=== PATIENT | female | born 1980 | race Caucasian/White ===

== ENCOUNTER → 2019-10-22 10:47 | Outpatient (BNVA) | payer OTHER, SELFPAY | PROVIDERS: Family Provider Family Medicine; Referring Provider Family Medicine; Visit Provider Otolaryngology | DX: E04.9 Nontoxic goiter, unspecified (principal); K21.9 Gastro-esophageal reflux disease without esophagitis; R47.02 Dysphasia | CPT/HCPCS: 99203; 99214 ==

== ENCOUNTER 2019-10-27 10:57 | Outpatient (CLI) | payer OTHER, SELFPAY ==
--- NOTE | 2019-10-27 11:00 | US_ITS ---
WS: [id number] ULTRASOUND THYROID TECHNIQUE: Ultrasound of the thyroid. CLINICAL INFORMATION: Goiter COMPARISON: and FINDINGS: Thyroid: Right and left thyroid lobes are normal in size and echotexture. A few bilateral cystic and solid thyroid nodules not significantly changed since 2019. Right thyroid lobe: 5.9 cm x 1.0 cm x 1.2 cm 6 x 5 x 6 mm solid hypoechoic nodule. 6 x 5 x 6 mm echogenic nodule. Left thyroid lobe: 5.5 cm x 1.4 cm x 1.3 cm. 15 x 12 x 10 mm complex nodule. 15 x 11 x 11 mm solid nodule Isthmus: 0.2 mm. Cervical lymphadenopathy: None. US/US thyroid [id number] IMPRESSION: 1. A few bilateral cystic and solid thyroid nodules the largest in the left th yroid lobe measuring 15 mm. These are stable since 2019. 2. Recommend 12 month follow-up.
== END 2019-10-27 10:58 | disposition home or self-care (01) ==
LOC: RAD 11:01
PROVIDERS: Family Provider Family Medicine; PCP Family Medicine; Visit Provider Otolaryngology
DX: E04.9 Nontoxic goiter, unspecified (principal); E04.1 Nontoxic single thyroid nodule
CPT/HCPCS: 76536

== ENCOUNTER → 2019-11-12 11:26 | Outpatient (BNVA) | payer OTHER, SELFPAY | PROVIDERS: Family Provider Family Medicine; PCP Family Medicine; Visit Provider Otolaryngology | DX: E04.9 Nontoxic goiter, unspecified (principal); K21.9 Gastro-esophageal reflux disease without esophagitis; R47.02 Dysphasia | CPT/HCPCS: 99213; 99214 ==

== ENCOUNTER 2020-04-27 13:12 | Outpatient (CLI) | payer OTHER, SELFPAY ==
--- NOTE | 2020-04-27 13:29 | CT_ITS ---
WS: [id number] CT ABDOMEN AND PELVIS WITH CONTRAST HISTORY: INCARCERATED SU-UMBILICAL HERNIA VS ACUTE APPENDICITIS TECHNIQUE: Imaging performed of the abdomen and pelvis with IV contrast. Single phase imaging of the abdomen. Coronal and sagittal reformats are submitted. All CT scans at [facility] use at least one of these dose optimization techniques: automated exposure control; mA and/or kV adjustment per patient size (includes targeted exams where dose is matched to clinical indication); or iterativ e reconstruction. IV CONTRAST: Omnipaque 300; 95 mL IV. Oral contrast: No DLP: 1011.69 mGy.cm COMPARISON: None available. Lower thorax: Lung bases are clear. Heart is normal size. No hiatal hernia. Liver/biliary system: Very mild hepatic steatosis. No mass. No bile duct dilatation. Gallbladder: Normal. No gallstones or wall thickening. No pericholecystic fluid. Pancreas: Normal. Spleen: Normal. Adrenal glands: Normal. Right kidney: Normal. Left kidney: Normal. Aorta: Normal. Lymphadenopathy: None. Free fluid: None. GI tract: The appendix is normal. No GI tract obstruction. Abdominal wall: Unremarkable abdominal wall. No hernia. Pelvis: Uterus is anteverted. A cystic mass in the RIGHT adnexa. This may be a uterine fibroid or the RIGHT ovary closely positioned adjacent to the uterus. There are multiple small cyst measuring 3.4 x 3.8 in their entirety. There is a small fibroid in the anterior LEFT uterine fundus. Bones: Unremarkable. Notified Luiz Crouch MD at 04/27/2020 3:[address]/CT abdomen pelvis w con* [id number] IMPRESSION: 1. Normal appendix. 2. No incarcerated hernia. 3. Small uterine fibroid versus multiple small cysts within the RIGHT ovary cl osely positioned adjacent to the uterus. For further evaluation transvaginal pe lvic ultrasound could be obtained. 4. No free fluid or adenopathy.
[2020-04-27] MEDS: iohexol 300 mg/mL 50 mL Btl IV (14:03)
[2020-04-27] MEDS: iohexol 300 mg/mL 100 mL Btl IV (15:15)
== END 2020-04-27 13:13 | disposition home or self-care (01) ==
LOC: RAD 13:16
PROVIDERS: PCP Family Medicine; Visit Provider Family Medicine
DX: R10.31 Right lower quadrant pain (principal)
CPT/HCPCS: 74177; Q9967

== ENCOUNTER → 2020-06-16 11:17 | Outpatient (BNVA) | payer OTHER, SELFPAY | PROVIDERS: PCP Family Medicine; Visit Provider Internal Medicine | DX: Z20.828 Contact with and (suspected) exposure to other viral communicable diseases (principal) | CPT/HCPCS: 87635 ==

== ENCOUNTER 2020-07-08 14:24 | Outpatient (CLI) | payer OTHER, SELFPAY ==
--- NOTE | 2020-07-08 14:39 | XR_ITS ---
WS: [id number] Lumbar spine, 3 views, 07/08/2020 Clinical Data: LUMBAR BACK PAIN W/RADICULOPATHY Comparison: None. Findings: No compression fractures or subluxation is seen. Degenerative disc narrowing is present at L5-S1.. Th e transverse processes and SI joints are normal. There is a gentle dextroscoliosis XR/XR lumbar spine 2-3V* [id number] Impression: Dextroscoliosis and degenerative disc narrowing at L5-S1.
== END 2020-07-08 14:25 | disposition home or self-care (01) ==
LOC: RAD 14:30
PROVIDERS: PCP Family Medicine; Visit Provider Family Medicine
DX: M54.16 Radiculopathy, lumbar region (principal); M41.86 Other forms of scoliosis, lumbar region
CPT/HCPCS: 72100

== ENCOUNTER 2020-07-20 08:44 | Outpatient (CLI) | payer OTHER, SELFPAY ==
--- NOTE | 2020-07-20 | US_ITS ---
WS: [id number] TRANSABDOMINAL PELVIC AND TRANSVAGINAL PELVIC ULTRASOUND HISTORY: RIGHT ovarian cystic pain. COMPARISON: 10/02/[address] 04/27/2020 Uterus: 9.0 cm x 4.4 cm x 3.9 cm. Uterus is very slightly enlarged and anteverted. No fibroid or mass . There is a nabothian cyst. Endometrium: 0.6 cm. Small cystic collection inseparable from the posterior mid endometrium measures 1.1 x 0.9 x 1.0 cm. No increased vascularity. Right ovary: 3.5 cm x 1.8 cm x 1.6 cm. Several small simple follicles associated with the RIGHT ovary . The largest measures 1.8 x 1.3 x 1.8 cm. Normal vascularity within the visualized ovary. Left ovary: 2.9 cm x 2.6 cm x 1.5 cm. Normal size LEFT ovary. There are several small follicles with the largest measuring 1.1 x 1.3 x 1.5 cm. Normal vascularity within the ovary. No free fluid. US/US pelvic with transvaginal IMPRESSION: 1. Normal size endometrium with an adjacent cyst extending from the posterior wall. Patient provided a history of a prior endometrial ablation. Cystic region s are often identified post ablation. Additional etiologies consider is adenomy osis with a dilated gland. 2. Small bilateral follicles.
== END 2020-07-20 08:45 | disposition home or self-care (01) ==
LOC: US 08:45
PROVIDERS: PCP Family Medicine; Visit Provider Family Medicine
DX: N83.201 Unspecified ovarian cyst, right side (principal)
CPT/HCPCS: 76830; 76856

== ENCOUNTER → 2020-07-21 15:07 | Outpatient (BNVA) | payer OTHER, SELFPAY | PROVIDERS: PCP Family Medicine; Visit Provider Nurse Practitioner Family | DX: N39.0 Urinary tract infection, site not specified (principal); N20.9 Urinary calculus, unspecified; N39.41 Urge incontinence; R31.0 Gross hematuria; B37.3 Candidiasis of vulva and vagina | CPT/HCPCS: 80053; 81003; 88112 ==

== ENCOUNTER 2020-07-28 15:40 | Outpatient (CLI) | payer OTHER, SELFPAY ==
--- NOTE | 2020-07-28 15:54 | MR_ITS ---
WS: [id number] MRI LUMBAR SPINE NONCONTRAST TECHNIQUE: Sagittal T1, T2 and STIR imaging. Axial T1 and T2 imaging. CLINICAL INFORMATION: LUMBAR BACK PAIN/WITH RADICULOPATHY COMPARISON: None. FINDINGS: Mild lumbar curve. No acute compression. Mild disc bulging L3-L4 and L4-L5. L1-L2: Normal. L2-L3: No significant disc bulging. Spinal canal and foramen are patent. L3-L4: Shallow central disc protrusion with moderate central canal stenosis. Impingement on the trave rsing right greater than left L4 nerve roots. Small right foraminal protrusion with mild right forami nal narrowing. Left foramen is patent. Mild facet arthropathy. L4-L5: Small central disc protrusion with moderate to severe central canal stenosis. Impingement on t raversing L5 nerve roots bilaterally left greater than right. Tiny annular fissure eccentric to the l eft. Foramen are patent. Moderate facet arthropathy. L5-S1: Mild disc bulging and osteophytic ridging. Slight effacement of ventral thecal sac with slight contact of the traversing S1 nerve roots. Moderate facet arthropathy. Foramen are patent. Right adnexal cysts partially visualized measuring 1.4 and 1.2 CM. Small cystic appearing uterine shyanne metrial lesion measuring 8 mm.This can be further evaluated ultrasound. MR/MR lumbar spine wo con* [id number] IMPRESSION: 1. Moderate central canal stenosis L3-4 and moderate to severe central canal s tenosis L4-5 due to small central disc protrusions. 2. Small right foraminal protrusion L3-4 with mild right foraminal narrowing. 3. Moderate facet arthropathy L4-5. 4. Right adnexal cysts partially visualized measuring 1.4 and 1.2 CM. Small cy stic appearing uterine myometrial lesion measuring 8 mm.This can be further micah luated ultrasound.
== END 2020-07-28 15:41 | disposition home or self-care (01) ==
LOC: RADSHAW 15:50
PROVIDERS: PCP Family Medicine; Visit Provider Family Medicine
DX: M54.16 Radiculopathy, lumbar region (principal); M48.061 Spinal stenosis, lumbar region without neurogenic claudication; M51.26 Other intervertebral disc displacement, lumbar region; M47.816 Spondylosis without myelopathy or radiculopathy, lumbar region
CPT/HCPCS: 72148

== ENCOUNTER → 2020-08-03 16:18 | Outpatient (BNVA) | payer OTHER, SELFPAY | PROVIDERS: PCP Family Medicine; Referring Provider Dermatology; Visit Provider Orthopaedic Surgery | DX: M54.5 Low back pain (principal) | CPT/HCPCS: 72114; 87635 ==

== ENCOUNTER 2020-08-09 09:01 | Day surgery (SDC) | payer OTHER, SELFPAY ==
[2020-08-06 12:45] VITALS: BMI 33.5
[2020-08-09] VITALS (18 sets, daily range): BP systolic 101–136; BP diastolic 50–89; PULSE 62–86; RESP 12–18; TEMP 36.4–36.8; O2SAT 93–100
--- NOTE | 2020-08-09 | SCC_ITS ---
Procedure Done: 1. Laminotomy L3/4 bilateral 2.Laminotomy L4/5 bilateral, 3. Laminotomy L5/S1 35.9 seconds of fluoroscopic guidance, for a cumulative dose of 11.19 mGy, was provided to Dr. Carvalho by the radiology department. C-arm images of the lumbar spine were saved for the patient's permanent record. [facility]
--- NOTE | 2020-08-09 | XR_ITS ---
WS: [id number] C-ARM RADIOGRAPHS LUMBAR SPINE; 6 IMAGES HISTORY: Lumbar stenosis COMPARISON: None available. Intraoperative imaging during lumbar spine procedure. Marker indicates the L3-4 and L4-5 levels poste riorly. XR/XR lumbar spine 2-3V* [id number] IMPRESSION: Intraoperative imaging during lumbar spine surgery.
[2020-08-09 09:20] LABS: OR HCG Qualitative Urine Negative (Negative)
[2020-08-09] MEDS: gabapentin 300 mg Capsule PO (09:34)
[2020-08-09] MEDS: sodium chloride 0.9% 1,000 ML 30 ML IV (09:34)
--- NOTE | 2020-08-09 09:35 | ANES.PREANE2 ---
Pre-Anesthetic Assessment Pre-Anesthetic Assessment: Height/Weight: Height 1.68 m Weight 94.347 kg Temp Pulse Resp BP Pulse Ox 98.2 F 74 18 132/86 99 08/09/20 09:15 08/09/20 09:15 08/09/20 09:15 08/09/20 09:15 08/09/20 09:15 Preop Diagnosis: lumbar stenosis Proposed Procedure: Operation Date: 08/09/20 10:50 Proposed Procedures p Lumbar Spine Decompression Of L3/4 L4/5 L5/S1 69467 08559 M48.06(Bilateral) - Brian Carvalho DO Familial anesthetic complications: Spinal took an hour to place, and her previous epidural was insufficient for her emergent Was Beta [place] taken within 24 hours: Yes Last intake: Intake Last Liquid Date 08/08/20 Last Liquid Time 20:30 Last Solid Date 08/08/20 Last Solid Time 18:30 Social: Social History: No alcohol and No tobacco Exam: Pre-Anes Outpt Exam: alert, oriented x 3, clear to auscultation bilaterally and regular rate & rhythm Airway: Cervical ROM: WNL MP: 2 Dentition: Full GI: GI: GERD Metabolic: Metabolic: Thyroid (nontoxic goiter) Anesthetic Plan: ASA status: 2 Anesthesia: General Risk of > 500 ml blood loss (7ml/kg in children): No Meds/Allergies Current Medications: Current Medications Generic Name Dose Route Start Last Admin Trade Name Freq PRN Reason Stop Dose Admin Sodium Chloride 1,000 mls @ 30 ml s/hr 08/09/20 09:15 08/09/20 09:34 Sodium Chloride 0.9% IV 08/10/20 09:14 30 mls/hr .Q24H PORTIA Administration PFSH Anesthesia PFSH: Medical History (Updated 08/03/20 @ 17:01 by Brian Carvalho DO) delivery delivered GERD (gastroesophageal reflux disease) Gross hematuria HTN (hypertension) Recurrent UTI Right rotator cuff tear Urgency incontinence Urolithiasis Yeast vaginitis Surgical History History of endometrial ablation Tubal ligation status Family History Other Carotid artery stenosis Hypertension Social History (Reviewed 08/03/20 @ 16:14 by DONN Diaz Smoking and tobacco status: former smoker Alcohol intake: never Marital status: Current occupational status: employed Data Anesthesia Other Labs: Laboratory Results - last 48 hr 08/09/20 09:16 Urine HCG, Qual Negative Cardiac Studies: No Data to Display
[2020-08-09] MEDS: midazolam 1 mg/mL INJ 2 mL 2 MG IVP (10:00)
--- NOTE | 2020-08-09 10:01 | W.PM.OPSUD ---
Surgery/Procedure H&P Update DATE OF PROCEDURE: August 09, 2020 DATE H&P PERFORMED: 08/03/20 H&P UPDATE INFORMATION: I have reviewed H&P completed within last 30 days, I have examined patient prior to procedure and No changes to prior documentation PREOP DIAGNOSIS: lumbar stenosis PLANNED PROCEDURE: Operation Date: 08/09/20 10:50 Proposed Procedures p Lumbar Spine Decompression Of L3/4 L4/5 L5/S1 85178 25323 M48.06(Bilateral) - Brian Carvalho DO
[2020-08-09] MEDS: clindamycin 600 MG/50 ML PREMIX 999 MG IV (10:20)
--- NOTE | 2020-08-09 11:21 | SUR.OPER ---
1105 family updated of surgical status
--- NOTE | 2020-08-09 12:28 | P.OP_ITS ---
Operative Report Date of procedure: August 09, 2020 Pre-op Diagnosis: lumbar stenosis L3/4, L4/5, L5/S1 Post-op diagnosis: same Procedure Done: 1. Laminotomy L3/4 bilateral 2.Laminotomy L4/5 bilateral, 3. Laminotomy L5/S1 Surgeon: Brian Carvalho Anesthesia: General Estimated blood loss (mL): 25 Condition: stable Disposition: PACU Procedure: 1. Laminotomy L3/4 bilateral 2.Laminotomy L4/5 bilateral, 3. Laminotomy L5/S1 Patient is brought to the operative suite placed in the prone position all areas of impingement were well-padded patient's prepped and draped normal sterile fashion. Attention was brought to the L3-4 level first. This was confirmed under C-arm guidance. Skin sutures made dilators were passed to the retractors placed onto the L3 lamina lamina is performed bilaterally along with partial facetectomy bilaterally ligament flavum was taken down from L3-L4 ligament was significantly thickened dura was in good repair. Once the levels decompressed a large curette was brought through the L3-4 foramen as well as around the L4 pedicle bilaterally to ensure the L4 nerve roots got appropriate decompress. Next attention was brought to the L4-5 level again this was confirmed under C- arm guidance the dilators were again passed tubular tract was docked onto the L4 lamina again with the Hobbs bed was tilted in order to facilitate getting bilateral this is also on the L3-4 level. High-speed bur Kerrisons curette were all used to ensure that the laminotomies performed as it was on the L3-4 level the partial facetectomy was done bilateral ligament flavum again was taken down from L4-L5 bilaterally ligament significant thickened dura was in good repair large curette was used to ensure that the L4 nerve root was deeply decompressed as was the L5 nerve root. She was brought to the L5 level again down to the past 2 retractors inserted and docked on the L5 lamina laminotomy was performed bilateral decompression was performed with laminotomies using high-speed bur curettes Kerrisons ligamentum flavum was taken down from L5-S1 bilaterally ligament again was secondly thickened once a space was all opened up large curette again was used to ensure that the L5 and S1 nerve roots were appropriately compressed dura was in good repair wounds were irrigated all 3 levels and then surgical was used to prevent any excessive bleeding wound was irrigated and closed with Vicryl and Monocryl suture skin glue patient was transferred to the PACU in stable condition.
[2020-08-09] MEDS: fentaNYL 50 mcg/mL INJ 2mL IVP ×2 (13:00→13:07)
[2020-08-09] MEDS: morphine 4 mg/mL SDV 1 mL 2 MG IVP (13:15)
[2020-08-09] MEDS: ondansetron 2 mg/ML SDV 2 mL 4 MG IVP (13:20)
[2020-08-09] MEDS: diphenhydrAMINE 50 mg/mL SDV 1mL 12.5 MG IVP (13:26)
[2020-08-09] MEDS: HYDROcodone-acetaminophen 5-325 mg Tablet 1 TAB PO (14:18)
--- NOTE | 2020-08-09 14:53 | ANE.PACU2 ---
Inpatient post-anesthesia follow up: Airway intact: Yes Vital signs: Temperature 98.2 F Pulse Rate 62 Respiratory Rate 18 Blood Pressure 122/66 Pulse Oximetry 95 Oxygen Delivery Me thod Room Air Oxygen Flow Rate 6 Fraction of Inspir ed Oxygen Hydration adequate: Yes Nausea and vomiting: Yes Pain level: 4 Mental status: Baseline
== END 2020-08-09 14:44 | disposition home or self-care (01) ==
PROVIDERS: Anesthesiology; PCP Family Medicine; Visit Provider Orthopaedic Surgery
PROC: (CPT 63005; principal; 2020-08-09 10:20)
DX: M48.062 Spinal stenosis, lumbar region with neurogenic claudication (principal); K21.9 Gastro-esophageal reflux disease without esophagitis; I10 Essential (primary) hypertension; Z87.891 Personal history of nicotine dependence
CPT/HCPCS: 63030; 63035 ×2; 12345; 72100; 76000; 81025; 84703; 96374; J0131; J1100; J1200; J2250; J2270; J2405; J2704; J2710; J2765; J3010; J3490; J7030

== ENCOUNTER → 2020-09-13 08:13 | Outpatient (BNVA) | payer OTHER, SELFPAY | PROVIDERS: PCP Family Medicine; Visit Provider Urology | DX: N39.0 Urinary tract infection, site not specified (principal); N39.41 Urge incontinence; R31.29 Other microscopic hematuria; N20.9 Urinary calculus, unspecified | CPT/HCPCS: 81003 ==

== ENCOUNTER → 2020-10-26 10:58 | Outpatient (BNVA) | payer OTHER, SELFPAY | PROVIDERS: PCP Family Medicine; Visit Provider Orthopaedic Surgery | DX: Z47.89 Encounter for other orthopedic aftercare (principal); M48.062 Spinal stenosis, lumbar region with neurogenic claudication | CPT/HCPCS: 72100; 73502 ==

== ENCOUNTER 2020-10-27 06:00 | Outpatient (RCR) | payer BC, SELFPAY | END 2020-11-21 23:59 | disposition home or self-care (01) | LOC: SPT 06:00 | PROVIDERS: PCP Family Medicine; Referring Provider Orthopaedic Surgery; Visit Provider Orthopaedic Surgery | DX: Z47.89 Encounter for other orthopedic aftercare (principal); M43.26 Fusion of spine, lumbar region | CPT/HCPCS: 97161 ==

== ENCOUNTER 2022-01-17 14:56 | Outpatient (CLI) | payer OTHER, SELFPAY ==
--- NOTE | 2022-01-17 15:19 | XR_ITS ---
WS: [id number] Thoracic spine, 3 views, 01/17/2022 Clinical Data: BACK PAIN Comparison: None. Findings: No compression fractures are seen. The disc heights are normal. The paravertebral regions are normal. The lower lumbar spine is seen on the AP view and demonstrates posterior lumbar fusion L3-L5 with disc spacers at L3-L4 and L4-L5. XR/XR thoracic spine 2V [id number] Impression: Negative thoracic spine.
== END 2022-01-17 14:57 | disposition home or self-care (01) ==
PROVIDERS: PCP Family Medicine; Visit Provider Internal Medicine
DX: M54.6 Pain in thoracic spine (principal)
CPT/HCPCS: 72070

== ENCOUNTER 2022-01-27 12:30 | Outpatient (CLI) | payer OTHER, MEDICAID, BC, SELFPAY ==
--- NOTE | 2022-01-27 12:58 | XR_ITS ---
WS: [id number] AP and lateral views of the thoracolumbar junction and lumbar spine, 01/27/2022 Clinical Data: LUMBAR BACK PAIN W/RADICULOPATHY Comparison: Thoracic spine, 01/17/2022 Findings: The posterior lumbar fusion from L3 through L5 with bilateral pedicle screws and connecting rods elissa ins stable. There are disc spacers at L3-4 and L4-5. Hemilaminectomies on the left at L3 and 4 are se en. The lumbar fusion appears stable. The thoracolumbar junction shows no significant abnormalities. The transverse processes and SI joints are not remarkable. There has been a bony fusion of the transv erse processes from L3 through L5 on the left and right. XR/XR thoracolumbar junct [id number] Impression: Intact posterior lumbar fusion.
== END 2022-01-27 12:31 | disposition home or self-care (01) ==
LOC: RAD 12:34
PROVIDERS: PCP Family Medicine; Visit Provider Family Medicine
DX: M54.16 Radiculopathy, lumbar region (principal); Z98.1 Arthrodesis status
CPT/HCPCS: 72080

== ENCOUNTER 2022-02-07 14:15 | Outpatient (CLI) | payer OTHER, BC, SELFPAY ==
--- NOTE | 2022-02-07 14:23 | MR_ITS ---
WS: [id number] MRI LUMBAR SPINE NONCONTRAST HISTORY: LUMBAR BACK PAIN W/RADICULOPATHY, prior lumbar spine surgeries. LEFT leg pain and numbness. COMPARISON: 07/28/2020 TECHNIQUE: Sagittal and axial multisequence imaging is submitted. Mild increase in the thoracic kyphosis. New since the prior examination is a posterior lumbar fusion extending from L3 to L5. Interbody disc spacers at L3-4 and L4-5. Postsurgical changes in the paraspinal soft tissues at L3-L5. Interbody spacers are obscured the disc spaces of L3-4 and L4-5. The remaining disc spaces are still unchanged. Conus terminates normally at L1-2 disc level. L1-L2: Normal. L2-L3: Mild annular disc bulging with moderate ligamentum flavum hypertrophy and facet arthritis. Mil d foraminal narrowing. L3-L4: Mild diffuse osteophytic ridging and annular disc bulging. LEFT posterior laminectomy defect. Nerve roots are becoming slightly clumped within the thecal sac. Foramina are partially obscured by a rtifact but do appear narrowed. Not changed. L4-L5: Mild diffuse annular disc bulging with what is probably a very shallow LEFT paracentral disc p rotrusion with slight contact on the LEFT traversing L5 nerve root. No high-grade stenosis or displac ement. Mild bilateral foraminal narrowing. L5-S1: Mild annular disc bulging with marked ligamentum flavum hypertrophy and facet arthritis. LEFT laminectomy defect. Thecal sac is small caliber. There is disc and facet encroachment upon the S1 ner ve roots bilaterally. Small caliber thecal sac. Paraspinal soft tissues are negative. MR/MR lumbar spine wo con* [id number] IMPRESSION: 1. Since the prior examination posterior lumbar fusion from L3 to L5 with lami nectomy defects on the LEFT. 2. Interbody spacers at L3-4 and L4-5. 3. Annular disc bulging at L5-S1 encroaching upon the S1 nerve roots bilateral ly in a small caliber thecal sac. Laminectomy defect on the LEFT at this level. 4. Suspect a very shallow LEFT paracentral disc protrusion at L4-5 with minima l contact on the LEFT traversing L5 nerve root. Mild foraminal narrowing at L4- 5.
== END 2022-02-07 14:16 | disposition home or self-care (01) ==
PROVIDERS: PCP Family Medicine; Visit Provider Family Medicine
DX: Z98.1 Arthrodesis status (principal); M51.87 Other intervertebral disc disorders, lumbosacral region; M48.061 Spinal stenosis, lumbar region without neurogenic claudication; M54.16 Radiculopathy, lumbar region
CPT/HCPCS: 72148

== ENCOUNTER → 2022-04-04 08:00 | Outpatient (BNVA) | payer OTHER, BC, MEDICAID, SELFPAY | PROVIDERS: PCP Family Medicine; Visit Provider Family Medicine | DX: I10 Essential (primary) hypertension (principal); E04.2 Nontoxic multinodular goiter | CPT/HCPCS: 80053; 84439; 84443; 84481; 85025 ==

== ENCOUNTER → 2022-04-21 08:57 | Outpatient (BNVA) | payer OTHER, BC, MEDICAID, SELFPAY | PROVIDERS: PCP Family Medicine; Visit Provider Family Medicine | DX: M25.50 Pain in unspecified joint (principal); M48.062 Spinal stenosis, lumbar region with neurogenic claudication; R31.29 Other microscopic hematuria; N39.41 Urge incontinence; B37.3 Candidiasis of vulva and vagina; N20.9 Urinary calculus, unspecified; R31.0 Gross hematuria; N39.0 Urinary tract infection, site not specified; R47.02 Dysphasia; K21.9 Gastro-esophageal reflux disease without esophagitis; E04.9 Nontoxic goiter, unspecified; M54.50 Low back pain, unspecified; M79.605 Pain in left leg; M25.552 Pain in left hip; I10 Essential (primary) hypertension | CPT/HCPCS: 85651; 86038; 86141; 86431; 86812 ==

== ENCOUNTER 2022-05-04 10:41 | Outpatient (CLI) | payer OTHER, BC, MEDICAID, SELFPAY ==
[2022-05-12 06:50] LABS: Free Cortisol Urine 12.8 mcg/24 h (4.0-50.0); Total Urine 2900 mL; Urine Creatinine 0.75 g/24 h (0.50-2.15)
== END 2022-05-04 10:42 | disposition home or self-care (01) ==
LOC: LAB 10:42
PROVIDERS: PCP Family Medicine; Visit Provider Family Medicine
DX: I10 Essential (primary) hypertension (principal)
CPT/HCPCS: 82384; 82530

== ENCOUNTER 2022-09-29 01:00 | Outpatient (CLI) | payer OTHER, BC, MEDICAID, SELFPAY | END 2022-09-29 23:00 | disposition home or self-care (01) | LOC: RAD 10-24 18:44 | PROVIDERS: PCP Family Medicine; Visit Provider Family Medicine | DX: Z51.81 Encounter for therapeutic drug level monitoring (principal); R73.09 Other abnormal glucose; I10 Essential (primary) hypertension | CPT/HCPCS: 80048; 83036 ==

== ENCOUNTER 2022-10-23 13:28 | Outpatient (CLI) | payer OTHER, BC, MEDICAID, SELFPAY ==
--- NOTE | 2022-10-23 14:00 | CT_ITS ---
WS: [id number] CT ANGIOGRAPHY abdomen and pelvis. HISTORY: HTN, left flank pain, look for renal artery stenosis TECHNIQUE: CT angiogram is performed during IV injection. Reformation images reviewed. All CT scans a [place] use at least one of these dose optimization techniques: automated exposure contro l; mA and/or kV adjustment per patient size (includes targeted exams where dose is matched to clinica l indication); or iterative reconstruction. CONTRAST: Omnipaque 350; 95 mL IV. DLP: 739.37 mGy.cm COMPARISON: No similar studies. Prior CT 04/27/2020 and 10/24/2018. Lung bases are clear. Normal size heart. Small hiatal hernia. Very mildly enlarged liver with hepatic steatosis. No bile duct dilatation is evident. Gallbladder is contracted. No adjacent inflammation. Normal spleen. Negative pancreas. Mild bilateral adrenal hyperplasia is new since 2019. Kidneys are e nhancing normally. Abdominal aorta: Contrast opacification of the aorta. No aneurysm. Single main bilateral renal arteries are identified . There is no stenosis. Good enhancement of each kidney. No bleeding or nodularity of the renal arter ies. There is a very high-grade stenosis involving the celiac axis with near complete occlusion. SMA is normal. CLEMENTE is patent. Normal common, internal and external iliac arteries. Normal appearance of the GI tract. Stomach is distended with food products and fluid. No small bowel obstruction. Normal appendix. There are a few very small RIGHT lower quadrant lymph nodes. No adenopa thy or ascites. Normal urinary bladder. Normal size anteverted uterus. Posterior lumbar fusion from L3 to L5 with interbody spacers at L3-4 and L4-5. CT/CT angio abdomen pelvis [id number] IMPRESSION: 1. No renal artery stenosis. 2. Normal enhancement of each kidney. 3. Severe, high-grade stenosis celiac axis. Patient is at risk for ischemic tima wel disease. Stenosis was not readily evident on prior CTs of the abdomen and p ian as they were not obtained as CT angiograms.
[2022-10-23] MEDS: iohexol 350 mg/mL 100 mL Btl IV (14:01)
== END 2022-10-23 13:29 | disposition home or self-care (01) ==
PROVIDERS: PCP Family Medicine; Visit Provider Family Medicine
DX: I10 Essential (primary) hypertension (principal); R10.9 Unspecified abdominal pain; I77.4 Celiac artery compression syndrome
CPT/HCPCS: 74174; Q9967

== ENCOUNTER 2022-12-18 11:42 | Outpatient (CLI) | payer OTHER, BC, MEDICAID, SELFPAY ==
--- NOTE | 2022-12-18 12:30 | US_ITS ---
WS: [id number] ULTRASOUND THYROID TECHNIQUE: Ultrasound of the thyroid. CLINICAL INFORMATION: Goiter COMPARISON: Ultrasound thyroid October 27, 2019 FINDINGS: Thyroid: Right and left thyroid lobes are normal in size and echotexture. Right thyroid lobe: 4.5 cm x 1.2 cm x 1.1 cm Solid well-circumscribed nodule RIGHT mid thyroid measuring 0.8 x 0.7 cm unchanged compared to previo us Left thyroid lobe: 5.6 cm x 1.1 cm x 1.3 cm. Solid well-circumscribed isoechoic LEFT inferior thyroid nodule measuring 1.2 x 1.1 x 1.5 cm Additional adjacent similar-appearing nodule measuring 1.3 x 0.7 x 0.9 cm Isthmus: 0.2 mm. Cervical lymphadenopathy: None. US/US thyroid [id number] IMPRESSION: Bilateral thyroid nodules are relatively stable compared to 2020. No cervical l ymphadenopathy. Recommend continued surveillance.
[2022-12-18 14:24] LABS: Alanine Aminotransferase 22 U/L (0-33); Albumin Level 4.6 g/dL (3.5-5.2); Alkaline Phosphatase 59 U/L (35-105); Anion Gap 15.2 (5-19); Aspartate Amino Transferase 22 U/L (0-32); Blood Urea Nitrogen 14 mg/dL (6-20); Calcium 9.9 mg/dL (8.5-10.5); Carbon Dioxide 29 mmol/L (22-29); Chloride 101 mmol/L (98-107); Free T4 Free Thyroxine 1.27 ng/dL (0.82-1.77); Glomerular Filtration Rate 78.7 mL/min (90-130); Glucose 85 mg/dL (65-115); Osmolality Calculated 292 mOsm/kg (285-295); Potassium 4.2 mmol/L (3.5-5.1); Sodium 141 mmol/L (136-145); Thyroid Stimulating Hormone 1.11 uIU/mL (0.27-4.20); Total Bilirubin 0.2 mg/dL (0.15-1.2); Total Protein 7.6 g/dL (6.6-8.7)
[2022-12-23 10:55] LABS: Plasma Renin Activity LC/MS/MS 0.97 ng/mL/h (0.25-5.82)
== END 2022-12-18 11:43 | disposition home or self-care (01) ==
PROVIDERS: PCP Family Medicine; Visit Provider Internal Medicine
DX: E04.2 Nontoxic multinodular goiter (principal); I10 Essential (primary) hypertension
CPT/HCPCS: 36415; 76536; 80053; 82088; 84244; 84439; 84443

== ENCOUNTER 2023-01-09 07:43 | Outpatient (CLI) | payer OTHER, BC, SELFPAY ==
[2023-01-09 09:25] LABS: Urine Creatinine 42 mg/dL (28-217)
[2023-01-09 17:49] LABS: Total Volume Urine 3000 ml
[2023-01-16 10:49] LABS: Free Cortisol Urine 21.8 mcg/24 h (4.0-50.0); Total Urine 3000 mL; Urine Creatinine 1.27 g/24 h (0.50-2.15)
== END 2023-01-09 07:44 | disposition home or self-care (01) ==
LOC: LAB 07:46
PROVIDERS: PCP Family Medicine; Visit Provider Internal Medicine
DX: I10 Essential (primary) hypertension (principal)
CPT/HCPCS: 82384; 82530; 82570

== ENCOUNTER 2023-01-22 13:59 | Outpatient (CLI) | payer OTHER, BC, MEDICAID, SELFPAY ==
[2023-01-22 14:34] LABS: Amylase 35 U/L (28-100)
[2023-01-23 08:25] LABS: Lipase 20 U/L (13-60)
== END 2023-01-22 14:00 | disposition home or self-care (01) ==
PROVIDERS: PCP Family Medicine; Visit Provider Nurse Practitioner Family
DX: R10.10 Upper abdominal pain, unspecified (principal)
CPT/HCPCS: 82150; 83690

== ENCOUNTER 2023-02-06 16:39 | Outpatient (CLI) | payer OTHER, BC, MEDICAID, SELFPAY ==
--- NOTE | 2023-02-06 17:04 | XR_ITS ---
WS: [id number] Lumbar spine with flexion, extension, and neutral lateral, 02/06/2023 Clinical Data: POSTLAMINECTOMY SYNDROME Comparison: AP and lateral thoracolumbar spine, 01/27/2022 Findings: The posterior lumbar fusion L3-L5 remains in the same position. There are disc spacers at L3-L4 and L 4-L5. On flexion and extension the fusion remains stable. XR/XR lumbar spine f/e only [id number] Impression: 1. Posterior lumbar fusion L3-L5. 2. Stable lumbar fusion on flexion and extension.
--- NOTE | 2023-02-06 17:05 | XR_ITS ---
WS: [id number] Left hip, AP and frog-leg views 02/06/2023 Clinical Data: PAIN IN LEFT HIP Comparison: Pelvis and left hip, 10/26/2020 Findings: No fractures or dislocations are seen. The left hip shows no erosion, sclerosis, narrowing, cyst form ation or fragmentation of the left femoral head. There is a small left acetabular lip. The soft tissu es are not remarkable. The adjacent pelvis is normal. There are pedicle screws and connecting umesh in the lower lumbar spine. 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 Tonnis classification: grade 1: sclerosis of femoral head and acetabulum or sli ght joint space narrowing or slight lipping at joint margins
[2023-02-06 18:24] LABS: Anion Gap 14.3 (5-19); Blood Urea Nitrogen 14 mg/dL (6-20); Calcium 10.1 mg/dL (8.5-10.5); Carbon Dioxide 28 mmol/L (22-29); Chloride 99 mmol/L (98-107); Glomerular Filtration Rate 91.8 mL/min (90-130); Glucose 82 mg/dL (65-115); Osmolality Calculated 284 mOsm/kg (285-295); Potassium 4.3 mmol/L (3.5-5.1); Sodium 137 mmol/L (136-145)
[2023-02-06 20:15] LABS: Estradiol 20.2 pg/mL; Follicle Stimulating Hormone 94.9 mIU/mL; Luteinizing Hormone 85.7 mIU/mL (0.5-41.7)
== END 2023-02-06 16:40 | disposition home or self-care (01) ==
PROVIDERS: PCP Family Medicine; Referring Provider Anesthesiology Pain Medicine; Visit Provider Internal Medicine
DX: E04.9 Nontoxic goiter, unspecified (principal); I10 Essential (primary) hypertension
CPT/HCPCS: 36415; 72120; 73502; 80048; 82670; 83001; 83002

== ENCOUNTER 2023-03-12 16:13 | Outpatient (CLI) | payer OTHER, BC, MEDICAID, SELFPAY ==
[2023-03-12 17:01] LABS: Anion Gap 14.8 (5-19); Blood Urea Nitrogen 19 mg/dL (6-20); Calcium 9.7 mg/dL (8.5-10.5); Carbon Dioxide 27 mmol/L (22-29); Chloride 100 mmol/L (98-107); Glomerular Filtration Rate 68.7 mL/min (90-130); Glucose 84 mg/dL (65-115); Osmolality Calculated 285 mOsm/kg (285-295); Potassium 4.8 mmol/L (3.5-5.1); Sodium 137 mmol/L (136-145)
== END 2023-03-12 16:14 | disposition home or self-care (01) ==
LOC: LAB 16:19
PROVIDERS: PCP Family Medicine; Visit Provider Internal Medicine
DX: E04.9 Nontoxic goiter, unspecified (principal); I10 Essential (primary) hypertension; N95.1 Menopausal and female climacteric states; N89.8 Other specified noninflammatory disorders of vagina
CPT/HCPCS: 36415; 80048

== ENCOUNTER → 2023-09-07 08:44 | Outpatient (BNVA) | payer MEDICAID, SELFPAY | PROVIDERS: PCP Family Medicine; Visit Provider Family Medicine | DX: Z51.81 Encounter for therapeutic drug level monitoring (principal); R25.2 Cramp and spasm; R31.0 Gross hematuria; N39.0 Urinary tract infection, site not specified; R30.0 Dysuria | CPT/HCPCS: 80053; 83735; 85025; 87086 ==

== ENCOUNTER → 2023-11-22 10:06 | Outpatient (BNVA) | payer OTHER, MEDICAID, SELFPAY | PROVIDERS: PCP Family Medicine; Visit Provider Internal Medicine | DX: I10 Essential (primary) hypertension (principal) | CPT/HCPCS: 36415; 80048 ==

== ENCOUNTER 2024-06-06 08:42 | Outpatient (CLI) | payer BC, MEDICAID, SELFPAY ==
--- NOTE | 2024-06-06 09:00 | MM_ITS ---
WS: [id number] BILATERAL SCREENING DIGITAL TOMOSYNTHESIS MAMMOGRAM WITH CAD HISTORY: Screening mammogram COMPARISON: 08/26/2013 Bilateral CC and MLO views with tomosynthesis and synthetic mammography submitted. Computer aided det ection analyzed. Breast composition: There are scattered areas of fibroglandular density. No suspicious masses, microc alcifications or architectural distortion. Benign calcification LEFT breast. MM/[place] [id number] IMPRESSION: BI-RADS: 2 - Benign. FOLLOW UP: 1 Year Follow-up
== END 2024-06-06 08:43 | disposition home or self-care (01) ==
LOC: RAD 08:42
PROVIDERS: PCP Family Medicine; Visit Provider Family Medicine
DX: Z12.31 Encounter for screening mammogram for malignant neoplasm of breast (principal); R92.323 Mammographic fibroglandular density, bilateral breasts; R92.1 Mammographic calcification found on diagnostic imaging of breast
CPT/HCPCS: 77063; 77067

== ENCOUNTER → 2024-06-24 10:31 | Outpatient (BNVA) | payer BC, MEDICAID, SELFPAY | PROVIDERS: PCP Family Medicine; Visit Provider Family Medicine | DX: Z51.81 Encounter for therapeutic drug level monitoring (principal); Z00.00 Encounter for general adult medical examination without abnormal findings; Z13.220 Encounter for screening for lipoid disorders | CPT/HCPCS: 80053; 80061; 85025 ==

== ENCOUNTER → 2024-07-17 10:17 | Outpatient (BNVA) | payer BC, MEDICAID, SELFPAY | PROVIDERS: PCP Family Medicine; Visit Provider Family Medicine | DX: E04.2 Nontoxic multinodular goiter (principal); N95.1 Menopausal and female climacteric states | CPT/HCPCS: 80048 ==

== ENCOUNTER 2024-12-11 10:51 | Outpatient (CLI) | payer BC, MEDICAID, SELFPAY ==
--- NOTE | 2024-12-11 11:15 | US_ITS ---
WS: [id number] THYROID ULTRASOUND HISTORY: Thyroid nodule COMPARISON: 12/18/2022, 10/27/2019 Right lobe: 1.4 cm x 1.4 cm x 4.3 cm (w x ap x l). Volume: 4.0 cm3. Normal sized gland. In the mid gland is a solid nodule with cystic components measuring 0.9 x 0.7 x 1.0 cm. Minimal peripheral increased vascularity. This nodule has been previously described without increase in size. Cystic component has progressed. No new mass or nodule. Left lobe: 1.3 cm x 1.3 cm x 4.8 cm (w x ap x l). Volume: 3.8 cm3. Normal size thyroid. Several nodules demonstrated within the LEFT thyroid lobe. Largest measures 1.2 x 1.0 x 1.5 cm in the inferior pole. Peripheral calcification within the largest nodule has increased. None of the nodules have increased in size. Some of these nodules are better visualized today than on prior studies. Isthmus: 0.2 cm. US/US thyroid [id number] IMPRESSION: TI-RADS 2; bilateral thyroid nodules. None of these nodules have increased in s ize over multiple prior years. Slightly more peripheral calcification in the in ferior LEFT thyroid nodule.
== END 2024-12-11 10:52 | disposition home or self-care (01) ==
PROVIDERS: PCP Family Medicine; Visit Provider Internal Medicine
DX: E04.2 Nontoxic multinodular goiter (principal); R93.89 Abnormal findings on diagnostic imaging of other specified body structures
CPT/HCPCS: 76536

== ENCOUNTER 2024-12-16 10:41 | Outpatient (CLI) | payer BC, MEDICAID, SELFPAY ==
[2024-12-16 11:36] LABS: Anion Gap 15.9 (5-19); Blood Urea Nitrogen 22 mg/dL (6-20); Calcium 10.1 mg/dL (8.5-10.5); Carbon Dioxide 24 mmol/L (22-29); Chloride 97 mmol/L (98-107); Free T4 Free Thyroxine 1.36 ng/dL (0.82-1.77); Glucose 98 mg/dL (65-115); Osmolality Calculated 277 mOsm/kg (285-295); Potassium 4.9 mmol/L (3.5-5.1); Sodium 132 mmol/L (136-145); Thyroid Stimulating Hormone 1.19 uIU/mL (0.27-4.20)
== END 2024-12-16 10:42 | disposition home or self-care (01) ==
PROVIDERS: PCP Family Medicine; Visit Provider Internal Medicine
DX: E04.2 Nontoxic multinodular goiter (principal); I10 Essential (primary) hypertension
CPT/HCPCS: 36415; 80048; 84439; 84443

== ENCOUNTER → 2025-05-08 08:49 | Outpatient (BNVA) | payer BC, MEDICAID, SELFPAY | PROVIDERS: PCP Family Medicine; Visit Provider Family Medicine | DX: Z00.00 Encounter for general adult medical examination without abnormal findings (principal); Z13.6 Encounter for screening for cardiovascular disorders; E78.5 Hyperlipidemia, unspecified; R73.09 Other abnormal glucose | CPT/HCPCS: 80053; 80061; 83036; 85025 ==

== ENCOUNTER 2025-07-17 11:25 | Outpatient (CLI) | payer BC, MEDICAID, SELFPAY ==
--- NOTE | 2025-07-17 11:40 | MM_ITS ---
WS: [id number] BILATERAL 3D TOMOSYNTHESIS DIGITAL SCREENING MAMMOGRAPHY WITH CAD CLINICAL INFORMATION: Screening HISTORY: Screening mammogram. No current complaints. COMPARISON: 2023 TECHNIQUE: Bilateral CC and MLO views. FINDINGS: Scattered fibroglandular densities bilaterally. No suspicious focal mass, asymmetry, calcifications, or architectural distortion. No evidence of malignancy. A few incidental punctate calcifications LEFT breast MM/MM scr BI tomosynthesis [id number] IMPRESSION: DENSITY: There are scattered areas of fibroglandular density. BI-RADS: 2 - Benign. FOLLOW UP: 1 Year Follow-up Recommend return to annual screening mammography.
== END 2025-07-17 11:26 | disposition home or self-care (01) ==
PROVIDERS: PCP Family Medicine; Visit Provider Family Medicine
DX: Z12.31 Encounter for screening mammogram for malignant neoplasm of breast (principal); R92.323 Mammographic fibroglandular density, bilateral breasts; R92.1 Mammographic calcification found on diagnostic imaging of breast
CPT/HCPCS: 77063; 77067